=== PATIENT | female | born 2000 | race Two or more races ===

== ENCOUNTER 2025-07-15 07:22 | Emergency (ER) | payer OTHER ==
[~2025-07-15] VITALS: Ht 157.5 cm; Wt 81.6 kg
[2025-07-15] MEDS ORDERED: PEPCID20 MG PO (07:58)
[2025-07-15] MEDS ORDERED: IPRATROPIUM BROMIDE 0.5 MG/2.5 ML AMPUL.NEB IH STA (10:05)
[2025-07-15] MEDS ORDERED: METHYLPREDNISOLONE SOD SUCC 125 MG VIAL IM STA (10:05)
[2025-07-15] MEDS ORDERED: ALBUTEROL SULFATE 3 ML/2.5 MG AMPUL.NEB IH SCH (10:15)
[2025-07-15] MEDS ORDERED: METHYLPREDNISOLONE SOD SUCC 40 MG VIAL ONE (10:20)
[2025-07-15 10:51] LABS: BASO % 0.8 % (0.1-1.2); EOS # 0.27 (0.04-0.54); EOS % 2.1 % (0.7-7.0); LYMPH # 2.24 (1.18-3.74); LYMPH % 17.4 % (19.3-53.1); MEAN PLATELET VOLUME 9.50 fl (9.4-12.4); MONO # 0.59 (0.24-0.82); MONO % 4.6 % (4.7-12.5); NEUT # 9.65 (1.56-6.13); NEUT % 74.7 % (34.0-71.1); RED CELL DISTRIBUTION WIDTH 15.1 % (11.6-14.4)
[2025-07-15 11:13] LABS: ERYTHROCYTE SEDIMENTATION RATE 33 mm/hr (0-20)
[2025-07-15 11:16] LABS: ALT/SGPT 29.0 U/L (12-78); AST/SGOT 20.0 U/L (15-37); BILIRUBIN TOTAL 0.59 mg/dL (0.3-1.2); BUN CREA RATIO 26.0 (7.0-25.0); CREATININE SERUM 0.7 mg/dL (0.55-1.02); GFR 103.69; GLOBULINA 4.8 G/DL (2.4-3.5); GLUCOSE FASTING 103.0 mg/dL (65-100); OSMOLALITY SERUM 283.0 MOSM/KG (275-295)
[2025-07-15 11:45] LABS: COVID-19 AG NEGATIVE (NEGATIVE)
[2025-07-15] MEDS ORDERED: IPRATROPIUM BROMIDE 0.5 MG/2.5 ML AMPUL.NEB IH ONE (11:45)
[2025-07-15] MEDS ORDERED: ALBUTEROL SULFATE 3 ML/2.5 MG AMPUL.NEB IH ONE (11:46)
[2025-07-15] MEDS ORDERED: ALBUTEROL2.5 MG/3 M IH (12:55)
[2025-07-15] MEDS ORDERED: MEDROLPACK PO (12:55)
[2025-07-15] MEDS ORDERED: BUDESONIDE0.5 MG/2 M IH (12:55)
[2025-07-15] MEDS ORDERED: ZITHROMAX500 MG PO (12:56)
[2025-07-15] MEDS ORDERED: CEFTRIAXONE SODIUM 1,000 MG VIAL IM STA (12:57)
[2025-07-15] MEDS ORDERED: CEFTRIAXONE SODIUM 1,000 MG VIAL ONE (13:02)
== END 2025-07-15 13:18 | disposition home or self-care (01) ==
LOC: ER 07:23
PROVIDERS: Physician Assistant Medical
DX: J45.41 Moderate persistent asthma with (acute) exacerbation (principal); Z20.822 Contact with and (suspected) exposure to COVID-19; Z91.013 Allergy to seafood